=== PATIENT | female | born 1995 | race Caucasian/White ===

== ENCOUNTER 2021-08-25 20:03 | Inpatient (IN) | payer OTHER, SELFPAY ==
[2021-08-25 20:31] VITALS: BP 109/60; PULSE 75; RESP 16; TEMP 36.6; O2SAT 97; BMI 20.9
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
[2021-08-25 20:58] LABS: Lithium 0.85 mmol/L (0.60-1.20)
--- NOTE | 2021-08-25 21:53 | PC.ADMIT ---
Pt is a 25year old female admitted on CV from [facility] for concerns of SI with a plan to OD on Prescription medications. Pt is alert and oriented X4. VSS. Covid negative, Tox screen positive for THC. Pt reports she and her two babies were staying with pt's father until he kicked them out. Pt states she is homeless, feels hopeless and helpless. Speech is regular with normal rhythm tone and berenice. Pt denies SI at this time, denies HI/AH/VH. Pt states that she wants to get her medications fixed and as well get help with Psych providers. Pt presents as pleasant and cooperative.Pt denies having a PCP at this time. Admission orders obtained.
[2021-08-25] MEDS: traZODone HCL 50 MG TABLET PO (22:13)
[2021-08-25] MEDS: QUEtiapine Fumarate 50 MG TABLET 150 MG PO (22:13)
[2021-08-26 06:00] VITALS: BP 134/72; PULSE 91; RESP 18; TEMP 36.2
[2021-08-26] MEDS: Lithium Carbonate ER 450 MG TABLET.ER 900 MG PO (08:52)
[2021-08-26 09:29] LABS: Cholesterol 108 mg/dL; HDL Cholesterol 32 mg/dL; LDL Cholesterol Calculated 65 mg/dl; Triglycerides 59 mg/dL
[2021-08-26 09:31] LABS: Estimated Average Glucose 91 mg/dL; Hemoglobin A1c % 4.8 %
[2021-08-26 09:44] LABS: Free T4 (Free Thyroxine) 0.81 ng/dL (0.71-1.85); Thyroid Stimulating Hormone 1.93 uIU/mL (0.32-4.0)
[2021-08-26] MEDS: Nicotine 21 MG PATCH.TD24 TRANSDERMA (09:58)
[2021-08-26 10:00] LABS: Folate 14.5 ng/mL (> or = 4.0); Vitamin B12 514 pg/mL (200-900)
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
--- NOTE | 2021-08-26 15:31 | HO.PSYCHPN ---
Subjective Subjective Date of Service: 08/26/21 Reason For Visit: SI, OD on meds Subjective Notes: Conditional Voluntary Healthcare Proxy: No Guardianship: No Medical Problems Affecting Mental Status: No Interim History: Karyna asking for assist with housing. Reviewed medications-requested some STD testing-reports sx of vaginal candidiasis and possible UTI-will obtain urine culture. Reivew of precipitants to admission Medication Compliance: Yes Side effects from medications: No Attending Groups: Intermittent Review of Systems Acute medical concerns: No as noted above Medical Review of Systems: unchanged Review of Systems Psychiatric: Reports anxiety, Reports depression, Reports difficulty concentrating, Reports hopelessness, Reports irritability, Reports anhedonia and Reports mood swings Mental Status Exam Mental Status Exam Patient Appearance: Appropriate Patient Orientation: Person, Place, Time and Situation Level of Consciousness: Alert Patient Behavior: Appropriate, Talkative, Cooperative and Good Eye Contact Mood Description: Depressed, Fearful, Anxious and Apprehensive Affect Description: Flat Patient Cognition Impaired: No Ability to Follow Directions: Good Speech Pattern: Spontaneous Speech Memory Description: Intact Hallucinations: None Delusions: Not Present Perceptual Disturbances: Depersonalization and Derealization Thought Process: Goal Oriented Thought Content: positive for Goal Oriented Depressive Symptoms: Increased Anxiety, Diff. Making Decisions, Feelings of Worthlessness, Hopelessness, Feelings of Guilt and Low Self Esteem Abnormal Motor Activity Signs and Symptoms: Restlessness Judgement: Fair Diagnostics Vital Signs (24Hr): Vital Signs - 24 hr 08/25/21 20:31 08/26/21 06:00 Temperature 97.8 F 97.1 F Pulse Rate 75 91 Respiratory Rate 16 18 Blood Pressure 109/60 134/72 Pulse Oximetry 97 Oxygen Delivery Method Room Air Room Air BMI result Body Mass Index 20.9 Labs Labs: Laboratory Results - last 48 hr 08/25/21 08/26/21 08/26/21 20:37 08:24 08:24 Estimat Average Glucose 91 Hemoglobin A1c % 4.8 Magnesium 2.0 Triglycerides 59 Cholesterol 108 LDL Cholesterol, Calc 65 HDL Cholesterol 32 Vitamin B12 Folate TSH 1.93 Free T4 0.81 [place] 0.85 08/26/21 08:24 Estimat Average Glucose Hemoglobin A1c % Magnesium Triglycerides Cholesterol LDL Cholesterol, Calc HDL Cholesterol Vitamin B12 514 Folate 14.5 TSH Free T4 [place] Medications Medications Current Medications Acetaminophen (Acetaminophen 325 Mg Tablet) 650 mg PO Q6H PRN PRN Reason: Headache/Pain Mild Scale (1-3) Al Hydroxide/Mg Hydroxide (Magnesium Hydrox/Alum Hydrox 30 Ml Oral.Susp) 30 ml PO Q6H PRN PRN Reason: Heartburn/Nausea Hydroxyzine HCl (Hydroxyzine Hcl 50 Mg Tablet) 50 mg PO Q6H PRN PRN Reason: Anxiety [place] Carbonate ([place] Carbonate Er 450 Mg Tablet.Er) 900 mg PO DAILY [facility] Last Admin: 08/26/21 08:52 Dose: 900 mg Lorazepam (Lorazepam 0.5 Mg Tablet) 0.5 mg PO BID PRN PRN Reason: agitation Magnesium Hydroxide (Milk Of Magnesia 30 Ml Oral.Susp) 30 ml PO DAILY PRN PRN Reason: Constipation Nicotine (Nicotine 21 Mg Patch.Td24) 21 mg TRANSDERMA DAILY [facility] Last Admin: 08/26/21 09:58 Dose: 21 mg Quetiapine Fumarate (Quetiapine Fumarate 50 Mg Tablet) 150 mg PO BEDTIME [facility] Last Admin: 08/25/21 22:13 Dose: 150 mg Trazodone HCl (Trazodone Hcl 50 Mg Tablet) 50 mg PO BEDTIME [facility] Last Admin: 08/25/21 22:13 Dose: 50 mg Allergies Allergies Allergy/AdvReac Type Severity Reaction Status Date / Time No Known Allergies Allergy Verified 08/25/21 20:17 Assessment & Plan Assessment & Plan (1) MDD (major depressive disorder), recurrent episode, moderate: Status: Acute Code(s): F33.1 - Major depressive disorder, recurrent, moderate (2) THANG (generalized anxiety disorder): Status: Acute Code(s): F41.1 - Generalized anxiety disorder (3) Post traumatic stress disorder (PTSD): Status: Acute Code(s): F43.10 - Post-traumatic stress disorder, unspecified Plan 1. HIV, RPR 2. Urine Culture 3. EKG, hx cardiac murmur 4. Diflucan 150 mg x 1 dose for reports of sx of vaginal candidiasis 5.Discontinue Trazodone 6. Mirtazapine 7.5 mg hs I spent minutes with the patient and/or on the patient floor today, greater than?50% of which was spent counseling/coordinating care. Patient educated on: medication risk/benefits and therapeutic strategies Informed Consent: understands and further education needed Reason for contiued inpatient stay Substantial Risk for: harm to self, inability to function and rapid decompensation
[2021-08-26] MEDS: LORazepam 0.5 MG TABLET PO (17:18)
[2021-08-26 18:00] VITALS: BP 109/75; PULSE 78; RESP 16; TEMP 36.6; O2SAT 98
[2021-08-26] MEDS: Mirtazapine 7.5 MG TABLET PO ×2 (19:53→21:42)
[2021-08-26] MEDS: Fluconazole 150 MG TABLET PO (19:53)
[2021-08-26] MEDS: QUEtiapine Fumarate 50 MG TABLET 150 MG PO (19:53)
[2021-08-26] MEDS: Magnesium Hydrox/Alum Hydrox 30 ML ORAL.SUSP PO (20:49)
[2021-08-26 22:42] LABS: UPreg QC Valid YES; Urine Pregnancy NEGATIVE (NEGATIVE)
[2021-08-27 06:00] VITALS: BP 111/62; PULSE 83; RESP 16; TEMP 36.4; O2SAT 98
[2021-08-27] MEDS: Lithium Carbonate ER 450 MG TABLET.ER 900 MG PO (08:15)
[2021-08-27] MEDS: Nicotine 21 MG PATCH.TD24 TRANSDERMA (08:16)
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
[2021-08-27] MEDS: LORazepam 0.5 MG TABLET PO (11:58)
[2021-08-27] MEDS: busPIRone HCl 10 MG TABLET PO ×2 (15:37→21:37)
[2021-08-27 17:25] VITALS: BP 125/83; PULSE 98; TEMP 36.2
[2021-08-27] MEDS: QUEtiapine Fumarate 50 MG TABLET 150 MG PO (21:40)
[2021-08-27] MEDS: Mirtazapine 7.5 MG TABLET PO (21:40)
[2021-08-28 02:17] LABS: CT PCR NOT DETECTED (Not Detect.)
[2021-08-28 02:18] LABS: NG PCR NOT DETECTED (Not Detect.)
[2021-08-28 06:00] VITALS: BP 119/67; PULSE 87; RESP 16; TEMP 36.3; O2SAT 98
[2021-08-28] MEDS: Lithium Carbonate ER 450 MG TABLET.ER 900 MG PO (08:35)
[2021-08-28] MEDS: busPIRone HCl 10 MG TABLET PO ×3 (08:35→21:20)
[2021-08-28] MEDS: Nicotine 21 MG PATCH.TD24 TRANSDERMA (08:36)
[2021-08-28] MEDS: QUEtiapine Fumarate 100 MG TABLET PO ×2 (12:25→18:41)
[2021-08-28 16:05] VITALS: BP 120/57; PULSE 76; TEMP 37; O2SAT 99
--- NOTE | 2021-08-28 16:24 | P.PNPSI_ITS ---
Subjective Subjective Date of Service: 08/28/21 Reason For Visit: SI, OD on meds Interim History: Patient coped very well yesterday evening with upsetting phone call from her mother and though found it very triggering, kept her composure. Overall slept well. Today she is again very focused on using her markers and even asks for discharge so she can go to a another facility where markers are loud to be used more readily. Despite her initial strong feelings about being denied this extra privilege and struggling to accept the policy, patient was able to talk herself through and agree that the main issue is about her being able to stay in emotional and behavioral control, a skill that she needs to remain stable as an outpatient. Patient got to a place where she felt stable and said that she would continue to cope without being able to use her markers. Patient did get dysregulated having a verbal outburst when her meal tray was for gotten a 2nd time, however she was able to calm down and made use of p.r.n. Mental Status Exam Mental Status Exam Narrative: Pt is alert and oriented; behavior is cooperative, friendly, initially upset but able to become calm; dressed in casual, appropriate attire with combed hair and adequate hygiene; mood is described as upset and affect congruent (though eventually calmed); eye contact appropriate; Speech is normal rate, volume and prosody and not pressured; some psychomotor agitation present; thought process is organized and goal directed; Thought content is on being ignored by family on birthday; being denied coping tool; on tx, on battling hopeless feelings; otherwise pertinent to relevant topics and without any delusional content, paranoid ideations or grandiosity; intermittent passive wish; no HI. There is no evidence of perceptual disturbance and denies AVH; Patients insight and judgment are impaired but adequate. Diagnostics Vital Signs (24Hr): Vital Signs - 24 hr 08/27/21 17:25 08/28/21 06:00 08/28/21 16:05 Temperature 97.2 F 97.4 F 98.6 F Pulse Rate 98 87 76 Respiratory Rate 16 Blood Pressure 125/83 119/67 120/57 L Pulse Oximetry 98 99 BMI result Body Mass Index 20.9 Labs Labs: Laboratory Results - last 48 hr 08/26/21 08/27/21 21:40 21:14 Urine Test NEGATIVE Chlam trachomat DNA PCR NOT DETECTED N.gonorrhoeae DNA (PCR) NOT DETECTED Medications Medications Current Medications Acetaminophen (Acetaminophen 325 Mg Tablet) 650 mg PO Q6H PRN PRN Reason: Headache/Pain Mild Scale (1-3) Al Hydroxide/Mg Hydroxide (Magnesium Hydrox/Alum Hydrox 30 Ml Oral.Susp) 30 ml PO Q6H PRN PRN Reason: Heartburn/Nausea Last Admin: 08/26/21 20:49 Dose: 30 ml Buspirone HCl (Buspirone Hcl 10 Mg Tablet) 10 mg PO TID [facility] Last Admin: 08/28/21 14:19 Dose: 10 mg Hydroxyzine HCl (Hydroxyzine Hcl 50 Mg Tablet) 50 mg PO Q6H PRN PRN Reason: Anxiety [place] Carbonate ([place] Carbonate Er 450 Mg Tablet.Er) 900 mg PO DAILY [facility] Last Admin: 08/28/21 08:35 Dose: 900 mg Lorazepam (Lorazepam 0.5 Mg Tablet) 0.5 mg PO BID PRN PRN Reason: agitation Last Admin: 08/27/21 11:58 Dose: 0.5 mg Magnesium Hydroxide (Milk Of Magnesia 30 Ml Oral.Susp) 30 ml PO DAILY PRN PRN Reason: Constipation Mirtazapine (Mirtazapine 7.5 Mg Tablet) 7.5 mg PO BEDTIME MRX1 [facility] Last Admin: 08/28/21 08:08 Dose: Not Given Nicotine (Nicotine 21 Mg Patch.Td24) 21 mg TRANSDERMA DAILY [facility] Last Admin: 08/28/21 08:36 Dose: 21 mg Quetiapine Fumarate (Quetiapine Fumarate 50 Mg Tablet) 150 mg PO BEDTIME [facility] Last Admin: 08/27/21 21:40 Dose: 150 mg Quetiapine Fumarate (Quetiapine Fumarate 100 Mg Tablet) 100 mg PO TID PRN PRN Reason: anxiety Last Admin: 08/28/21 12:25 Dose: 100 mg Allergies Allergies Allergy/AdvReac Type Severity Reaction Status Date / Time No Known Allergies Allergy Verified 08/25/21 20:17 Assessment & Plan Assessment & Plan (1) MDD (major depressive disorder), recurrent episode, moderate: Status: Acute Code(s): F33.1 - Major depressive disorder, recurrent, moderate (2) THANG (generalized anxiety disorder): Status: Acute Code(s): F41.1 - Generalized anxiety disorder (3) Post traumatic stress disorder (PTSD): Status: Acute Code(s): F43.10 - Post-traumatic stress disorder, unspecified Plan 26-year-old patient with history of depression, anxiety, PTSD and a rule out for bipolar disorder 08/27 patient initially upset today as it was her birthday and ignored by family; able to process and come down; intermittent passive wish but no SI -started Seroquel 100 mg t.i.d. p.r.n. (patient said she is taking this dose at home when she needs to chill ) -started buspirone 10 mg t.i.d.; while it is generally preferable to maximize current medications (such as increasing mirtazapine rather than starting a new medication), patient very much wanted a trial of buspirone since she has tried her friends in the past and found it helpful; this medication is typically used in augmenting other medications and has low side effect profile and in this case administrative underwriter decided its benefit outweighed risks of polypharmacy -continue lithium 08/28 patient again struggling with feelings at not being able to use markers as a coping tool whenever needed; however she was able to talk herself through her feelings and calmed down. -pt has been sober for 3 years -father has bipolar disorder 1. HIV, RPR: PENDING 2. Urine Culture 3. EKG, hx cardiac murmur 4. Diflucan 150 mg x 1 dose for reports of sx of vaginal candidiasis 5.Discontinue Trazodone 6. Mirtazapine 7.5 mg hs 7. BuSpar 10 mg t.i.d. 8. Seroquel 100 mg t.i.d. p.r.n. for anxiety/agitation Negative gonorrhea/chlamydia I spent minutes with the patient and/or on the patient floor today, greater than?50% of which was spent counseling/coordinating care. Patient educated on: diagnosis, medication risk/benefits and therapeutic strategies Informed Consent: understands Reason for contiued inpatient stay Substantial Risk for: rapid decompensation
[2021-08-28] MEDS: QUEtiapine Fumarate 50 MG TABLET 150 MG PO (21:20)
[2021-08-28] MEDS: Mirtazapine 7.5 MG TABLET PO (21:36)
[2021-08-29 06:00] VITALS: BP 123/62; PULSE 79; RESP 16; TEMP 36.7; O2SAT 98
[2021-08-29 07:56] LABS: HIV AB/AG Nonreactive (Nonreactive); HIV Num 1 0.12 S/CO (0.00-0.99)
[2021-08-29] MEDS: QUEtiapine Fumarate 100 MG TABLET PO ×3 (08:28→20:35)
[2021-08-29] MEDS: busPIRone HCl 10 MG TABLET PO ×3 (08:28→21:41)
[2021-08-29] MEDS: Lithium Carbonate ER 450 MG TABLET.ER 900 MG PO (08:28)
[2021-08-29] MEDS: Nicotine 21 MG PATCH.TD24 TRANSDERMA (08:28)
[2021-08-29 08:48] LABS: Syphilis Screen Nonreactive (Nonreactive)
--- NOTE | 2021-08-29 15:53 | HO.PSYCHPN ---
Subjective Subjective Date of Service: 08/29/21 Reason For Visit: SI, OD on meds Subjective Notes: Conditional Voluntary Healthcare Proxy: No Guardianship: No Medical Problems Affecting Mental Status: No Interim History: Labile, angry, threatening. Expressed anger that DCF is wanting mother to take temporary custody of the children, feels she is being set up. States she has needed an immigration attorney in the past to manage DCF and will probably need to re-engage one to help with this situation. Pt is homeless, she has burned bridges with the family. She reports she will kill herself if the children are taken. Describes different personalities when stressed/angry. States she does not feel she is taken seriously until I flip out . Pt looking at housing options with the team. [place] level is therapeutic at 0.85. Medication Compliance: Yes Side effects from medications: No Attending Groups: Intermittent Review of Systems Acute medical concerns: No Medical Review of Systems: unchanged Review of Systems Reports behavioral changes Psychiatric: Reports anxiety, Reports behavioral changes, Reports difficulty concentrating, Reports irritability, Reports anhedonia, Reports mood swings, Reports paranoia and Reports suicidal ideation (threats if DCF takes her children) Mental Status Exam Mental Status Exam Patient Appearance: Appropriate Patient Orientation: Person, Place, Time and Situation Level of Consciousness: Alert Patient Behavior: Guarded, Talkative, Suspicious, Restless, Anxious, Distractible, Good Eye Contact and Impulsive Mood Description: Labile and Angry Affect Description: Labile and Angry Patient Cognition Impaired: No Ability to Follow Directions: Good Speech Pattern: Spontaneous Speech Memory Description: Episodic Impaired Hallucinations: None Delusions: Being Controlled and Paranoid Ideation Perceptual Disturbances: Depersonalization and Derealization Thought Process: Distracted, Rumination and Evasive Thought Content: positive for [place], positive for Circumstantial, positive for Perseveration and positive for Suicidal Ideation (if children are taken) Depressive Symptoms: Increased Irritability Abnormal Motor Activity Signs and Symptoms: Agitation and Restlessness Judgement: Fair Diagnostics Vital Signs (24Hr): Vital Signs - 24 hr 08/28/21 16:05 08/29/21 06:00 Temperature 98.6 F 98.1 F Pulse Rate 76 79 Respiratory Rate 16 Blood Pressure 120/57 L 123/62 Pulse Oximetry 99 98 BMI result Body Mass Index 20.9 Labs Labs: Laboratory Results - last 48 hr 08/27/21 08/27/21 08/27/21 08:40 08:40 21:14 T.pallidum Ab (EIA) Nonreactive Chlam trachomat DNA PCR NOT DETECTED HIV 1&2 Ab/P24 Ag 4thGn Nonreactive N.gonorrhoeae DNA (PCR) NOT DETECTED Medications Medications Current Medications Acetaminophen (Acetaminophen 325 Mg Tablet) 650 mg PO Q6H PRN PRN Reason: Headache/Pain Mild Scale (1-3) Al Hydroxide/Mg Hydroxide (Magnesium Hydrox/Alum Hydrox 30 Ml Oral.Susp) 30 ml PO Q6H PRN PRN Reason: Heartburn/Nausea Last Admin: 08/26/21 20:49 Dose: 30 ml Bupropion HCl (Bupropion Hcl 75 Mg Tablet) 75 mg PO DAILY [facility] Buspirone HCl (Buspirone Hcl 10 Mg Tablet) 10 mg PO TID [facility] Last Admin: 08/29/21 14:44 Dose: 10 mg Hydroxyzine HCl (Hydroxyzine Hcl 50 Mg Tablet) 50 mg PO Q6H PRN PRN Reason: Anxiety Lamotrigine (Lamotrigine 25 Mg Tablet) 25 mg PO BEDTIME [facility] [place] Carbonate ([place] Carbonate Er 450 Mg Tablet.Er) 900 mg PO DAILY [facility] Last Admin: 08/29/21 08:28 Dose: 900 mg Lorazepam (Lorazepam 0.5 Mg Tablet) 0.5 mg PO BID PRN PRN Reason: agitation Last Admin: 08/27/21 11:58 Dose: 0.5 mg Magnesium Hydroxide (Milk Of Magnesia 30 Ml Oral.Susp) 30 ml PO DAILY PRN PRN Reason: Constipation Mirtazapine (Mirtazapine 7.5 Mg Tablet) 7.5 mg PO BEDTIME MRX1 [facility] Last Admin: 08/29/21 00:15 Dose: Not Given Nicotine (Nicotine 21 Mg Patch.Td24) 21 mg TRANSDERMA DAILY [facility] Last Admin: 08/29/21 08:28 Dose: 21 mg Quetiapine Fumarate (Quetiapine Fumarate 50 Mg Tablet) 150 mg PO BEDTIME [facility] Last Admin: 08/28/21 21:20 Dose: 150 mg Quetiapine Fumarate (Quetiapine Fumarate 100 Mg Tablet) 100 mg PO TID PRN PRN Reason: anxiety Last Admin: 08/29/21 13:47 Dose: 100 mg Allergies Allergies Allergy/AdvReac Type Severity Reaction Status Date / Time No Known Allergies Allergy Verified 08/25/21 20:17 Assessment & Plan Assessment & Plan (1) MDD (major depressive disorder), recurrent episode, moderate: Status: Acute Code(s): F33.1 - Major depressive disorder, recurrent, moderate (2) THANG (generalized anxiety disorder): Status: Acute Code(s): F41.1 - Generalized anxiety disorder (3) Post traumatic stress disorder (PTSD): Status: Acute Code(s): F43.10 - Post-traumatic stress disorder, unspecified Plan 26-year-old patient with history of depression, anxiety, PTSD and a rule out for bipolar disorder 08/27 patient initially upset today as it was her birthday and ignored by family; able to process and come down; intermittent passive wish but no SI -started Seroquel 100 mg t.i.d. p.r.n. (patient said she is taking this dose at home when she needs to chill ) -started buspirone 10 mg t.i.d.; while it is generally preferable to maximize current medications (such as increasing mirtazapine rather than starting a new medication), patient very much wanted a trial of buspirone since she has tried her friends in the past and found it helpful; this medication is typically used in augmenting other medications and has low side effect profile and in this case loan underwriter decided its benefit outweighed risks of polypharmacy -continue lithium 08/28 patient again struggling with feelings at not being able to use markers as a coping tool whenever needed; however she was able to talk herself through her feelings and calmed down. -pt has been sober for 3 years -father has bipolar disorder 1. HIV, RPR: PENDING 2. Urine Culture 3. EKG, hx cardiac murmur 4. Diflucan 150 mg x 1 dose for reports of sx of vaginal candidiasis 5.Discontinue Trazodone 6. Mirtazapine 7.5 mg hs 7. BuSpar 10 mg t.i.d. 8. Seroquel 100 mg t.i.d. p.r.n. for anxiety/agitation Negative gonorrhea/chlamydia 08/29/21 Wellbutrin 75 mg a.m. Lamictal 25 mg hs I spent minutes with the patient and/or on the patient floor today, greater than?50% of which was spent counseling/coordinating care. Patient educated on: medication risk/benefits and therapeutic strategies Informed Consent: understands and further education needed Reason for contiued inpatient stay Substantial Risk for: harm to self, harm to others, inability to function and rapid decompensation
[2021-08-29] MEDS: LORazepam 0.5 MG TABLET PO (16:36)
[2021-08-29 18:00] VITALS: BP 112/57; PULSE 90; TEMP 36.4; O2SAT 99
[2021-08-29] MEDS: lamoTRIgine 25 MG TABLET PO (21:41)
[2021-08-29] MEDS: Mirtazapine 7.5 MG TABLET PO ×2 (21:41→21:45)
[2021-08-29] MEDS: QUEtiapine Fumarate 50 MG TABLET 150 MG PO (21:41)
[2021-08-30 06:00] VITALS: BP 105/54; PULSE 79; RESP 16; TEMP 37.1; O2SAT 98
[2021-08-30] MEDS: Lithium Carbonate ER 450 MG TABLET.ER 900 MG PO (08:30)
[2021-08-30] MEDS: buPROPion HCL 75 MG TABLET PO (08:30)
[2021-08-30] MEDS: busPIRone HCl 10 MG TABLET PO ×3 (08:30→21:19)
[2021-08-30] MEDS: Nicotine 21 MG PATCH.TD24 TRANSDERMA (08:32)
[2021-08-30] MEDS: guaiFENesin DM 600/30 1 TAB TAB.ER.12H PO (09:50)
[2021-08-30] MEDS: Throat Lozenge, Medicated LOZENGE 1 LOZENGE MUCOUS MEM (10:20)
[2021-08-30 10:41] LABS: COVID-19 Test Negative (Negative); IDNOW Serial# 08D9AD1C
[2021-08-30] MEDS: QUEtiapine Fumarate 100 MG TABLET PO (11:26)
[2021-08-30] MEDS: LORazepam 0.5 MG TABLET PO (11:26)
--- NOTE | 2021-08-30 12:30 | P.PNPSI_ITS ---
Subjective Subjective Date of Service: 08/30/21 Reason For Visit: SI, OD on meds Subjective Notes: Conditional Voluntary Healthcare Proxy: No Guardianship: No Medical Problems Affecting Mental Status: No Interim History: Angry, labile, irritable. DCF asked Deni AGUSTIN to relay a message to pt that they are not trying to take her children away, however there are issues to be clarified and worked through and temporary custody is one of them. Pt unable to hear the entire explanation of DCF position, stating, that she assumes from this information that she needs an contract attorney. She aburptly left our meeting and was agitated for the remainder of the day. She does have an interview with [facility] on 08/31 12pm for placement eval (possibly with [facility] or a facility in [facility]). Prn Haldol/Ativan added to pt's regime as she has threatened to lose control Medication Compliance: Yes Side effects from medications: No Attending Groups: Intermittent Review of Systems Acute medical concerns: No Medical Review of Systems: unchanged Review of Systems Reports behavioral changes Psychiatric: Reports behavioral changes, Reports difficulty concentrating, Reports irritability, Reports mood swings, Reports paranoia and Reports suicidal ideation Mental Status Exam Mental Status Exam Patient Appearance: Appropriate Patient Orientation: Person, Place, Time and Situation Level of Consciousness: Alert Patient Behavior: Guarded, Talkative, Suspicious, Restless, Anxious, Distractible, Good Eye Contact and Impulsive Mood Description: Labile and Angry Affect Description: Labile and Angry Patient Cognition Impaired: No Ability to Follow Directions: Good Speech Pattern: Spontaneous Speech Memory Description: Episodic Impaired Hallucinations: None Delusions: Being Controlled and Paranoid Ideation Perceptual Disturbances: Depersonalization and Derealization Thought Process: Distracted, Rumination and Evasive Thought Content: positive for [place], positive for [place], positive for Perseveration and positive for Suicidal Ideation (if children are taken) Depressive Symptoms: Increased Irritability Abnormal Motor Activity Signs and Symptoms: Agitation and Restlessness Judgement: Fair Diagnostics Vital Signs (24Hr): Vital Signs - 24 hr 08/29/21 18:00 08/30/21 06:00 Temperature 97.6 F 98.7 F Pulse Rate 90 79 Respiratory Rate 16 Blood Pressure 112/57 L 105/54 L Pulse Oximetry 99 98 Oxygen Delivery Method Room Air BMI result Body Mass Index 20.9 Labs Labs: Laboratory Results - last 48 hr 08/27/21 08/27/21 08/30/21 08:40 08:40 09:57 T.pallidum Ab (EIA) Nonreactive COVID-19 ([facility]) Negative COVID-19 Clin Com See Note HIV 1&2 Ab/P24 Ag 4thGn Nonreactive Medications Medications Current Medications Acetaminophen (Acetaminophen 325 Mg Tablet) 650 mg PO Q6H PRN PRN Reason: Headache/Pain Mild Scale (1-3) Al Hydroxide/Mg Hydroxide (Magnesium Hydrox/Alum Hydrox 30 Ml Oral.Susp) 30 ml PO Q6H PRN PRN Reason: Heartburn/Nausea Last Admin: 08/26/21 20:49 Dose: 30 ml Benzocaine (Throat Lozenge, Medicated Lozenge) 1 lozenge MUCOUS MEM Q2H PRN PRN Reason: Sore Throat, cough Last Admin: 08/30/21 10:20 Dose: 1 lozenge Bupropion HCl (Bupropion Hcl 75 Mg Tablet) 75 mg PO DAILY [facility] Last Admin: 08/30/21 08:30 Dose: 75 mg Buspirone HCl (Buspirone Hcl 10 Mg Tablet) 10 mg PO TID [facility] Last Admin: 08/30/21 08:30 Dose: 10 mg Guaifenesin/Dextromethorphan (Guaifenesin Dm 600/30 1 Tab Tab.Er.12h) 1 tab PO BID PRN PRN Reason: Cough Last Admin: 08/30/21 09:50 Dose: 1 tab Hydroxyzine HCl (Hydroxyzine Hcl 50 Mg Tablet) 50 mg PO Q6H PRN PRN Reason: Anxiety Lamotrigine (Lamotrigine 25 Mg Tablet) 25 mg PO BEDTIME [facility] Last Admin: 08/29/21 21:41 Dose: 25 mg [place] Carbonate ([place] Carbonate Er 450 Mg Tablet.Er) 900 mg PO DAILY [facility] Last Admin: 08/30/21 08:30 Dose: 900 mg Lorazepam (Lorazepam 0.5 Mg Tablet) 0.5 mg PO BID PRN PRN Reason: agitation Last Admin: 08/30/21 11:26 Dose: 0.5 mg Magnesium Hydroxide (Milk Of Magnesia 30 Ml Oral.Susp) 30 ml PO DAILY PRN PRN Reason: Constipation Mirtazapine (Mirtazapine 7.5 Mg Tablet) 7.5 mg PO BEDTIME MRX1 [facility] Last Admin: 08/29/21 21:45 Dose: 7.5 mg Nicotine (Nicotine 21 Mg Patch.Td24) 21 mg TRANSDERMA DAILY [facility] Last Admin: 08/30/21 08:32 Dose: 21 mg Quetiapine Fumarate (Quetiapine Fumarate 50 Mg Tablet) 150 mg PO BEDTIME [facility] Last Admin: 08/29/21 21:41 Dose: 150 mg Quetiapine Fumarate (Quetiapine Fumarate 100 Mg Tablet) 100 mg PO TID PRN PRN Reason: anxiety Last Admin: 08/30/21 11:26 Dose: 100 mg Allergies Allergies Allergy/AdvReac Type Severity Reaction Status Date / Time No Known Allergies Allergy Verified 08/25/21 20:17 Assessment & Plan Assessment & Plan (1) MDD (major depressive disorder), recurrent episode, moderate: Status: Acute Code(s): F33.1 - Major depressive disorder, recurrent, moderate (2) THANG (generalized anxiety disorder): Status: Acute Code(s): F41.1 - Generalized anxiety disorder (3) Post traumatic stress disorder (PTSD): Status: Acute Code(s): F43.10 - Post-traumatic stress disorder, unspecified Plan 26-year-old patient with history of depression, anxiety, PTSD and a rule out for bipolar disorder 08/27 patient initially upset today as it was her birthday and ignored by family; able to process and come down; intermittent passive wish but no SI -started Seroquel 100 mg t.i.d. p.r.n. (patient said she is taking this dose at home when she needs to chill ) -started buspirone 10 mg t.i.d.; while it is generally preferable to maximize current medications (such as increasing mirtazapine rather than starting a new medication), patient very much wanted a trial of buspirone since she has tried her friends in the past and found it helpful; this medication is typically used in augmenting other medications and has low side effect profile and in this case freelance copywriter decided its benefit outweighed risks of polypharmacy -continue lithium 08/28 patient again struggling with feelings at not being able to use markers as a coping tool whenever needed; however she was able to talk herself through her feelings and calmed down. -pt has been sober for 3 years -father has bipolar disorder 1. HIV, RPR: PENDING 2. Urine Culture 3. EKG, hx cardiac murmur 4. Diflucan 150 mg x 1 dose for reports of sx of vaginal candidiasis 5.Discontinue Trazodone 6. Mirtazapine 7.5 mg hs 7. BuSpar 10 mg t.i.d. 8. Seroquel 100 mg t.i.d. p.r.n. for anxiety/agitation Negative gonorrhea/chlamydia 08/30/21 Haldol/Ativan prn for severe agitation. I spent minutes with the patient and/or on the patient floor today, greater than?50% of which was spent counseling/coordinating care. Patient educated on: therapeutic strategies Informed Consent: further education needed Reason for contiued inpatient stay Substantial Risk for: harm to self, inability to function and rapid decompensation
[2021-08-30] MEDS: hydrOXYzine HCL 50 MG TABLET PO (13:31)
[2021-08-30] MEDS: LORazepam 1 MG TABLET PO (14:14)
[2021-08-30] MEDS: HaloperidoL 5 MG TABLET PO (14:14)
[2021-08-30 18:00] VITALS: BP 106/52; PULSE 85; RESP 18; TEMP 36.8; O2SAT 97
[2021-08-30] MEDS: QUEtiapine Fumarate 50 MG TABLET 150 MG PO (21:18)
[2021-08-30] MEDS: Mirtazapine 7.5 MG TABLET PO (21:18)
[2021-08-31] MEDS: Nicotine 21 MG PATCH.TD24 TRANSDERMA (08:24)
[2021-08-31] MEDS: buPROPion HCL 75 MG TABLET PO (08:24)
[2021-08-31] MEDS: busPIRone HCl 10 MG TABLET PO ×3 (08:24→20:13)
[2021-08-31] MEDS: Lithium Carbonate ER 450 MG TABLET.ER 900 MG PO (08:24)
[2021-08-31 08:27] VITALS: BP 97/61; PULSE 83; RESP 18; TEMP 36.2; O2SAT 99
[2021-08-31] MEDS: QUEtiapine Fumarate 100 MG TABLET PO ×2 (11:07→21:11)
--- NOTE | 2021-08-31 13:16 | HO.PSYCHPN ---
Subjective Subjective Date of Service: 08/31/21 Reason For Visit: SI, OD on meds Subjective Notes: Conditional Voluntary Healthcare Proxy: No Guardianship: No Medical Problems Affecting Mental Status: No Interim History: Karyna remains with irritability and lability, however, more organized around self-advocacy for housing for herself and her children. Interviewing today with Ziggy Salazar for placement. Review of medications- finding Seroquel and Haldol helpful in grounding her thoughts and clarity. Discussed timing of Seroquel. Medication Compliance: Yes Side effects from medications: No Attending Groups: Intermittent Review of Systems Acute medical concerns: No Medical Review of Systems: unchanged Review of Systems Reports behavioral changes Psychiatric: Reports anxiety, Reports behavioral changes, Reports irritability, Reports anhedonia, Reports mood swings, Reports paranoia, Reports homicidal ideation (denies) and Reports suicidal ideation (denies) Mental Status Exam Mental Status Exam Patient Appearance: Appropriate Patient Orientation: Person, Place, Time and Situation Level of Consciousness: Alert Patient Behavior: Talkative and Good Eye Contact Mood Description: Labile Affect Description: Labile Patient Cognition Impaired: No Ability to Follow Directions: Good Speech Pattern: Spontaneous Speech Memory Description: Intact Hallucinations: None Delusions: Not Present Perceptual Disturbances: Depersonalization and Derealization Thought Process: Distracted Thought Content: positive for Circumstantial, positive for Suicidal Ideation (denies) and positive for Homicidal Ideation (denies) Judgement: Good Diagnostics Vital Signs (24Hr): Vital Signs - 24 hr 08/30/21 18:00 08/31/21 08:27 Temperature 98.3 F 97.1 F Pulse Rate 85 83 Respiratory Rate 18 18 Blood Pressure 106/52 L 97/61 Pulse Oximetry 97 99 Oxygen Delivery Method Room Air Room Air BMI result Body Mass Index 20.9 Labs Labs: Laboratory Results - last 48 hr 08/30/21 09:57 COVID-19 (RAFY) Negative COVID-19 Clin Com See Note Medications Medications Current Medications Acetaminophen (Acetaminophen 325 Mg Tablet) 650 mg PO Q6H PRN PRN Reason: Headache/Pain Mild Scale (1-3) Al Hydroxide/Mg Hydroxide (Magnesium Hydrox/Alum Hydrox 30 Ml Oral.Susp) 30 ml PO Q6H PRN PRN Reason: Heartburn/Nausea Last Admin: 08/26/21 20:49 Dose: 30 ml Benzocaine (Throat Lozenge, Medicated Lozenge) 1 lozenge MUCOUS MEM Q2H PRN PRN Reason: Sore Throat, cough Last Admin: 08/30/21 10:20 Dose: 1 lozenge Bupropion HCl (Bupropion Hcl 75 Mg Tablet) 75 mg PO DAILY [facility] Last Admin: 08/31/21 08:24 Dose: 75 mg Buspirone HCl (Buspirone Hcl 10 Mg Tablet) 10 mg PO TID MARY Last Admin: 08/31/21 08:24 Dose: 10 mg Guaifenesin/Dextromethorphan (Guaifenesin Dm 600/30 1 Tab Tab.Er.12h) 1 tab PO BID PRN PRN Reason: Cough Last Admin: 08/30/21 09:50 Dose: 1 tab Haloperidol (Haloperidol 5 Mg Tablet) 5 mg PO TID PRN PRN Reason: agitation, aggression Last Admin: 08/30/21 14:14 Dose: 5 mg Hydroxyzine HCl (Hydroxyzine Hcl 50 Mg Tablet) 50 mg PO Q6H PRN PRN Reason: Anxiety Last Admin: 08/30/21 13:31 Dose: 50 mg Lamotrigine (Lamotrigine 25 Mg Tablet) 25 mg PO BEDTIME [facility] Last Admin: 08/31/21 08:26 Dose: Not Given Wellston Carbonate (Wellston Carbonate Er 450 Mg Tablet.Er) 900 mg PO DAILY [facility] Last Admin: 08/31/21 08:24 Dose: 900 mg Lorazepam (Lorazepam 1 Mg Tablet) 1 mg PO TID PRN PRN Reason: agitation,aggression Last Admin: 08/30/21 14:14 Dose: 1 mg Magnesium Hydroxide (Milk Of Magnesia 30 Ml Oral.Susp) 30 ml PO DAILY PRN PRN Reason: Constipation Mirtazapine (Mirtazapine 7.5 Mg Tablet) 7.5 mg PO BEDTIME MRX1 [facility] Last Admin: 08/31/21 08:26 Dose: Not Given Nicotine (Nicotine 21 Mg Patch.Td24) 21 mg TRANSDERMA DAILY [facility] Last Admin: 08/31/21 08:24 Dose: 21 mg Quetiapine Fumarate (Quetiapine Fumarate 50 Mg Tablet) 150 mg PO BEDTIME [facility] Last Admin: 08/30/21 21:18 Dose: 150 mg Quetiapine Fumarate (Quetiapine Fumarate 100 Mg Tablet) 100 mg PO TID PRN PRN Reason: anxiety Last Admin: 08/31/21 11:07 Dose: 100 mg Allergies Allergies Allergy/AdvReac Type Severity Reaction Status Date / Time No Known Allergies Allergy Verified 08/25/21 20:17 Assessment & Plan Assessment & Plan (1) MDD (major depressive disorder), recurrent episode, moderate: Status: Acute Code(s): F33.1 - Major depressive disorder, recurrent, moderate (2) THANG (generalized anxiety disorder): Status: Acute Code(s): F41.1 - Generalized anxiety disorder (3) Post traumatic stress disorder (PTSD): Status: Acute Code(s): F43.10 - Post-traumatic stress disorder, unspecified Plan 26-year-old patient with history of depression, anxiety, PTSD and a rule out for bipolar disorder 08/27 patient initially upset today as it was her birthday and ignored by family; able to process and come down; intermittent passive wish but no SI -started Seroquel 100 mg t.i.d. p.r.n. (patient said she is taking this dose at home when she needs to chill ) -started buspirone 10 mg t.i.d.; while it is generally preferable to maximize current medications (such as increasing mirtazapine rather than starting a new medication), patient very much wanted a trial of buspirone since she has tried her friends in the past and found it helpful; this medication is typically used in augmenting other medications and has low side effect profile and in this case underwriter solicitation director decided its benefit outweighed risks of polypharmacy -continue lithium 08/28 patient again struggling with feelings at not being able to use markers as a coping tool whenever needed; however she was able to talk herself through her feelings and calmed down. -pt has been sober for 3 years -father has bipolar disorder 1. HIV, RPR: PENDING 2. Urine Culture 3. EKG, hx cardiac murmur 4. Diflucan 150 mg x 1 dose for reports of sx of vaginal candidiasis 5.Discontinue Trazodone 6. Mirtazapine 7.5 mg hs 7. BuSpar 10 mg t.i.d. 8. Seroquel 100 mg t.i.d. p.r.n. for anxiety/agitation Negative gonorrhea/chlamydia 08/30/21 Haldol/Ativan prn for severe agitation. 08/31/21 Change Seroquel timing to a.m. afternoon Pt believes Remeron is enough at this time. I spent minutes with the patient and/or on the patient floor today, greater than?50% of which was spent counseling/coordinating care. Patient educated on: medication risk/benefits and therapeutic strategies Informed Consent: understands Reason for contiued inpatient stay Substantial Risk for: rapid decompensation
[2021-08-31] MEDS: QUEtiapine Fumarate 50 MG TABLET 150 MG PO (14:37)
[2021-08-31 17:23] VITALS: BP 119/76; PULSE 100; RESP 18; TEMP 36.7
[2021-08-31] MEDS: Mirtazapine 7.5 MG TABLET PO (20:13)
[2021-08-31] MEDS: lamoTRIgine 25 MG TABLET PO (20:13)
[2021-08-31 20:39] VITALS: BP 113/58; PULSE 79; TEMP 36.3
[2021-08-31] MEDS: LORazepam 1 MG TABLET PO (21:11)
[2021-09-01 07:00] VITALS: BMI 21.7
[2021-09-01] MEDS: buPROPion HCL 75 MG TABLET PO (08:56)
[2021-09-01] MEDS: Lithium Carbonate ER 450 MG TABLET.ER 900 MG PO (08:56)
[2021-09-01] MEDS: busPIRone HCl 10 MG TABLET PO ×3 (08:56→21:26)
[2021-09-01] MEDS: QUEtiapine Fumarate 50 MG TABLET 150 MG PO ×3 (08:56→21:25)
[2021-09-01] MEDS: Nicotine 21 MG PATCH.TD24 TRANSDERMA (08:57)
[2021-09-01 11:11] VITALS: BP 107/74; PULSE 88; RESP 20; TEMP 36.7; O2SAT 97
[2021-09-01] MEDS: Milk of Magnesia 30 ML ORAL.SUSP PO (14:49)
--- NOTE | 2021-09-01 17:22 | HO.PSYCHPN ---
Subjective Subjective Date of Service: 09/01/21 Reason For Visit: SI, OD on meds Subjective Notes: Conditional Voluntary Healthcare Proxy: No Guardianship: No Medical Problems Affecting Mental Status: No Interim History: Karyna and family accepted at [facility]. Discharge 09/02/21. Deni Holbrook [facility] has arranged to have children transported with pt via [facility]. Facility asks for 1 month plus 1 refill of medications. Mildly irritable, easily frustrated, anxious, asking for Seroquel to be returned to HS Medication Compliance: Yes Side effects from medications: No Attending Groups: Yes Review of Systems Acute medical concerns: No Medical Review of Systems: unchanged Review of Systems Psychiatric: Reports abnormal sleep pattern (asks for Seroquel to return), Reports anxiety, Reports irritability, Reports homicidal ideation (denies) and Reports suicidal ideation (denies) Mental Status Exam Mental Status Exam Patient Appearance: Appropriate Patient Orientation: Person, Place, Time and Situation Level of Consciousness: Alert Patient Behavior: Appropriate, Talkative, Cooperative and Good Eye Contact Mood Description: Labile Affect Description: Labile Patient Cognition Impaired: No Ability to Follow Directions: Good Speech Pattern: Spontaneous Speech Memory Description: Intact Hallucinations: None Delusions: Not Present Thought Process: Goal Oriented Thought Content: positive for Goal Oriented Depressive Symptoms: Increased Anxiety and Thoughts of /Suicide (denies) Judgement: Good Diagnostics Vital Signs (24Hr): Vital Signs - 24 hr 08/31/21 17:23 08/31/21 20:39 09/01/21 11:11 Temperature 98.1 F 97.3 F 98.1 F Pulse Rate 100 79 88 Respiratory Rate 18 20 Blood Pressure 119/76 113/58 L 107/74 Pulse Oximetry 97 Oxygen Delivery Method Room Air Room Air BMI result Body Mass Index 21.7 Medications Medications Current Medications Acetaminophen (Acetaminophen 325 Mg Tablet) 650 mg PO Q6H PRN PRN Reason: Headache/Pain Mild Scale (1-3) Al Hydroxide/Mg Hydroxide (Magnesium Hydrox/Alum Hydrox 30 Ml Oral.Susp) 30 ml PO Q6H PRN PRN Reason: Heartburn/Nausea Last Admin: 08/26/21 20:49 Dose: 30 ml Benzocaine (Throat Lozenge, Medicated Lozenge) 1 lozenge MUCOUS MEM Q2H PRN PRN Reason: Sore Throat, cough Last Admin: 08/30/21 10:20 Dose: 1 lozenge Bupropion HCl (Bupropion Hcl 75 Mg Tablet) 75 mg PO DAILY [facility] Last Admin: 09/01/21 08:56 Dose: 75 mg Buspirone HCl (Buspirone Hcl 10 Mg Tablet) 10 mg PO TID MARY Last Admin: 09/01/21 14:04 Dose: 10 mg Guaifenesin/Dextromethorphan (Guaifenesin Dm 600/30 1 Tab Tab.Er.12h) 1 tab PO BID PRN PRN Reason: Cough Last Admin: 08/30/21 09:50 Dose: 1 tab Haloperidol (Haloperidol 5 Mg Tablet) 5 mg PO TID PRN PRN Reason: agitation, aggression Last Admin: 08/30/21 14:14 Dose: 5 mg Hydroxyzine HCl (Hydroxyzine Hcl 50 Mg Tablet) 50 mg PO Q6H PRN PRN Reason: Anxiety Last Admin: 08/30/21 13:31 Dose: 50 mg Lamotrigine (Lamotrigine 25 Mg Tablet) 25 mg PO BEDTIME [facility] Last Admin: 08/31/21 20:13 Dose: 25 mg Saunemin Carbonate (Saunemin Carbonate Er 450 Mg Tablet.Er) 900 mg PO DAILY [facility] Last Admin: 09/01/21 08:56 Dose: 900 mg Lorazepam (Lorazepam 1 Mg Tablet) 1 mg PO TID PRN PRN Reason: agitation,aggression Last Admin: 08/31/21 21:11 Dose: 1 mg Magnesium Hydroxide (Milk Of Magnesia 30 Ml Oral.Susp) 30 ml PO DAILY PRN PRN Reason: Constipation Last Admin: 09/01/21 14:49 Dose: 30 ml Mirtazapine (Mirtazapine 7.5 Mg Tablet) 7.5 mg PO BEDTIME MRX1 [facility] Last Admin: 08/31/21 21:44 Dose: Not Given Nicotine (Nicotine 21 Mg Patch.Td24) 21 mg TRANSDERMA DAILY [facility] Last Admin: 09/01/21 08:57 Dose: 21 mg Quetiapine Fumarate (Quetiapine Fumarate 100 Mg Tablet) 100 mg PO TID PRN PRN Reason: anxiety Last Admin: 08/31/21 21:11 Dose: 100 mg Quetiapine Fumarate (Quetiapine Fumarate 50 Mg Tablet) 150 mg PO 0900,1500 [facility] Last Admin: 09/01/21 14:04 Dose: 150 mg Allergies Allergies Allergy/AdvReac Type Severity Reaction Status Date / Time No Known Allergies Allergy Verified 08/25/21 20:17 Assessment & Plan Assessment & Plan (1) MDD (major depressive disorder), recurrent episode, moderate: Status: Acute Code(s): F33.1 - Major depressive disorder, recurrent, moderate (2) THANG (generalized anxiety disorder): Status: Acute Code(s): F41.1 - Generalized anxiety disorder (3) Post traumatic stress disorder (PTSD): Status: Acute Code(s): F43.10 - Post-traumatic stress disorder, unspecified Plan 26-year-old patient with history of depression, anxiety, PTSD and a rule out for bipolar disorder 08/27 patient initially upset today as it was her birthday and ignored by family; able to process and come down; intermittent passive wish but no SI -started Seroquel 100 mg t.i.d. p.r.n. (patient said she is taking this dose at home when she needs to chill ) -started buspirone 10 mg t.i.d.; while it is generally preferable to maximize current medications (such as increasing mirtazapine rather than starting a new medication), patient very much wanted a trial of buspirone since she has tried her friends in the past and found it helpful; this medication is typically used in augmenting other medications and has low side effect profile and in this case gag writer decided its benefit outweighed risks of polypharmacy -continue lithium 08/28 patient again struggling with feelings at not being able to use markers as a coping tool whenever needed; however she was able to talk herself through her feelings and calmed down. -pt has been sober for 3 years -father has bipolar disorder 1. HIV, RPR: PENDING 2. Urine Culture 3. EKG, hx cardiac murmur 4. Diflucan 150 mg x 1 dose for reports of sx of vaginal candidiasis 5.Discontinue Trazodone 6. Mirtazapine 7.5 mg hs 7. BuSpar 10 mg t.i.d. 8. Seroquel 100 mg t.i.d. p.r.n. for anxiety/agitation Negative gonorrhea/chlamydia 08/30/21 Haldol/Ativan prn for severe agitation. 08/31/21 Change Seroquel timing to a.m. afternoon Pt believes Remeron is enough at this time. 09/01/21 Discharge 09/02. Labs in the a.m. Add Seroquel 150 mg hs to bid dosing I spent minutes with the patient and/or on the patient floor today, greater than?50% of which was spent counseling/coordinating care. Patient educated on: medication risk/benefits and therapeutic strategies Informed Consent: understands Reason for contiued inpatient stay Substantial Risk for: inability to function and rapid decompensation
[2021-09-01 18:30] VITALS: BP 109/59; PULSE 105; TEMP 36.8
[2021-09-01] MEDS: Mirtazapine 7.5 MG TABLET PO (21:24)
[2021-09-01] MEDS: lamoTRIgine 25 MG TABLET PO (21:24)
[2021-09-02 06:00] VITALS: BP 111/62; PULSE 81; RESP 16; TEMP 36.4; O2SAT 98
[2021-09-02] MEDS: QUEtiapine Fumarate 100 MG TABLET PO (06:35)
[2021-09-02] MEDS: LORazepam 1 MG TABLET PO (06:41)
[2021-09-02] MEDS: busPIRone HCl 10 MG TABLET PO (07:55)
[2021-09-02] MEDS: buPROPion HCL 75 MG TABLET PO (07:55)
[2021-09-02] MEDS: Lithium Carbonate ER 450 MG TABLET.ER 900 MG PO (07:55)
[2021-09-02] MEDS: Nicotine 21 MG PATCH.TD24 TRANSDERMA (07:58)
[2021-09-02] MEDS: QUEtiapine Fumarate 50 MG TABLET 150 MG PO (07:58)
[2021-09-02 08:16] LABS: MANUAL DIFF FLAG NO
[2021-09-02 08:19] LABS: Basophils Absolute Auto 0.1 X10*3/uL (0.0-0.2); Basophils Percent Auto 1.1 % (0-2); Eosinophils Absolute Auto 0.2 X10*3/uL (0.0-0.4); Eosinophils Percent Auto 2.3 % (0-4); Hematocrit 36.1 % (37.0-47.0); Hemoglobin 11.7 g/dl (12.0-16.0); Imm Gran Abs Auto 0.04 X10*3/uL (0.00-0.03); Imm Gran Pct Auto 0.6 % (0.0-0.4); Lymphocytes Absolute Auto 1.5 X10*3/uL (1.2-4.9); Lymphocytes Percent Auto 21.7 % (20-40); Mean Corpuscular HGB Conc 32.4 g/dl (31.0-35.0); Mean Corpuscular Hemoglobin 27.8 pg (27.0-33.0); Mean Corpuscular Volume 85.7 fL (80.0-98.0); Mean Platelet Volume 10.3 fL (9.4-12.3); Monocytes Absolute Auto 0.5 X10*3/uL (0.1-1.2); Monocytes Percent Auto 7.7 % (2-11); Neutrophils Absolute Auto 4.7 x10*3/uL (2.0-8.3); Neutrophils Percent Auto 66.6 % (45-73); Platelet Count 314 X10*3/uL (160-400); Red Blood Count 4.21 X10*6/uL (4.20-5.50); Red Cell Distribution Width 15.9 % (11.0-16.0)
[2021-09-02 08:37] LABS: Alanine Aminotransferase 56 U/L (0-31); Albumin Level 4.3 g/dL (3.5-5.0); Alkaline Phosphatase 65 U/L (39-117); Anion Gap 11 (12-20); Aspartate Amino Transferase 26 U/L (5-31); Bilirubin Total 0.3 mg/dL (0.0-1.0); Blood Urea Nitrogen 11 mg/dL (9-16); Calcium 9.1 mg/dL (8.4-10.2); Carbon Dioxide 25 mmol/L (22-29); Chloride 106 mmol/L (96-108); Creatinine Clr Calc Pharmacy 115.5; Estimated Glomerular Filt Rate > 60; Glucose Random 91 mg/dL (60-115); Potassium 4.4 mmol/L (3.3-5.1); Sodium 138 mmol/L (135-145); Total Protein 6.8 g/dL (6.5-8.0)
[2021-09-02 08:40] LABS: Lithium 0.64 mmol/L (0.60-1.20)
--- NOTE | 2021-09-02 13:50 | P.DS_ITS ---
DS: Providers Provider Date of Service: 09/02/21 Date of admission: 08/25/21 20:03 Date of discharge: 09/02/21 Primary care physician: Unknown Physician Admitting clinician: Hiwot Tracey Attending physician on admission: Joe Corral Consults: 08/25/21 20:17 Consult to Hospitalist Routine Consulting Provider: Hospitalist Reason For Exam: new admit from [facility] [place], no medical concerns Attending physician on discharge: Joe Corral Discharging clinician: Loretta Fowler DS: Diagnosis Discharge Diagnosis (1) Bipolar disorder: Status: Acute (2) THANG (generalized anxiety disorder): Status: Acute (3) Post traumatic stress disorder (PTSD): Status: Acute DS: Medications Discharge Medications Home Medications: Previous Rx's Medication Instructions Recorded bupropion HCl 75 mg tablet 75 mg PO DAILY #30 tabs 09/01/21 buspirone 10 mg tablet 10 mg PO TID #90 tabs 09/01/21 haloperidol 5 mg tablet 5 mg PO TID PRN agitation, 09/01/21 aggression #90 tabs hydroxyzine HCl 50 mg tablet 50 mg PO Q6H PRN Anxiety #60 tabs 09/01/21 lamotrigine 25 mg tablet 25 mg PO BEDTIME #30 tabs 09/01/21 lithium carbonate 450 mg 900 mg PO DAILY #60 tabs 09/01/21 tablet,extended release mirtazapine 7.5 mg tablet 7.5 mg PO BEDTIME MRX1 #60 tabs 09/01/21 nicotine 21 mg/24 hr daily 21 mg transdermal DAILY #30 ea 09/01/21 transdermal patch quetiapine 100 mg tablet (Seroquel) 100 mg PO TID #90 tabs 09/01/21 quetiapine 50 mg tablet (Seroquel) 50 mg PO TID #90 tabs 09/01/21 Mental Status Exam Mental Status Exam Patient Appearance: Appropriate Patient Orientation: Person, Place, Time and Situation Level of Consciousness: Alert Patient Behavior: Appropriate, Talkative, Cooperative and Good Eye Contact Mood Description: Labile Affect Description: Labile Patient Cognition Impaired: No Ability to Follow Directions: Good Speech Pattern: Spontaneous Speech Memory Description: Intact Hallucinations: None Delusions: Not Present Thought Process: Goal Oriented Thought Content: positive for Goal Oriented Depressive Symptoms: Increased Anxiety and Thoughts of /Suicide (denies) Judgement: Good Data Data Completed and Pending Completed studies during hospitalization [Text1]: 08/26/21 08/27/21 08/27/21 21:40 08:40 08:40 WBC RBC Hgb Hct MCV MCH MCHC RDW Plt Count MPV Immature Gran % (Auto) Neut % (Auto) Lymph % (Auto) Coleman % (Auto) Eos % (Auto) Baso % (Auto) Lymph # (Auto) Coleman # (Auto) Eos # (Auto) Baso # (Auto) Abs Immat Gran (auto) Absolute Neuts (auto) Absolute Nucleated RBC Nucleated RBC % (auto) Sodium Potassium Chloride Carbon Dioxide Anion Gap BUN Creatinine Estim Creat Clear Calc Estimated GFR Random Glucose Calcium Total Bilirubin AST ALT Alkaline Phosphatase Total Protein Albumin Urine Test NEGATIVE Oxford T.pallidum Ab (EIA) Nonreactive Chlam trachomat DNA PCR COVID-19 (RAFY) COVID-19 Clin Com HIV 1&2 Ab/P24 Ag 4thGn Nonreactive N.gonorrhoeae DNA (PCR) 08/27/21 08/30/21 09/02/21 21:14 09:57 07:54 WBC 7.0 RBC 4.21 Hgb 11.7 L Hct 36.1 L MCV 85.7 MCH 27.8 MCHC 32.4 RDW 15.9 Plt Count 314 MPV 10.3 Immature Gran % (Auto) 0.6 H Neut % (Auto) 66.6 Lymph % (Auto) 21.7 Coleman % (Auto) 7.7 Eos % (Auto) 2.3 Baso % (Auto) 1.1 Lymph # (Auto) 1.5 Coleman # (Auto) 0.5 Eos # (Auto) 0.2 Baso # (Auto) 0.1 Abs Immat Gran (auto) 0.04 H Absolute Neuts (auto) 4.7 Absolute Nucleated RBC 0.000 Nucleated RBC % (auto) 0.0 Sodium Potassium Chloride Carbon Dioxide Anion Gap BUN Creatinine Estim Creat Clear Calc Estimated GFR Random Glucose Calcium Total Bilirubin AST ALT Alkaline Phosphatase Total Protein Albumin Urine Test Oxford T.pallidum Ab (EIA) Chlam trachomat DNA PCR NOT DETECTED COVID-19 (RAFY) Negative COVID-19 Clin Com See Note HIV 1&2 Ab/P24 Ag 4thGn N.gonorrhoeae DNA (PCR) NOT DETECTED 09/02/21 09/02/21 07:54 07:54 WBC RBC Hgb Hct MCV MCH MCHC RDW Plt Count MPV Immature Gran % (Auto) Neut % (Auto) Lymph % (Auto) Coleman % (Auto) Eos % (Auto) Baso % (Auto) Lymph # (Auto) Coleman # (Auto) Eos # (Auto) Baso # (Auto) Abs Immat Gran (auto) Absolute Neuts (auto) Absolute Nucleated RBC Nucleated RBC % (auto) Sodium 138 Potassium 4.4 Chloride 106 Carbon Dioxide 25 Anion Gap 11 L BUN 11 Creatinine 0.73 Estim Creat Clear Calc 115.5 Estimated GFR > 60 Random Glucose 91 Calcium 9.1 Total Bilirubin 0.3 AST 26 ALT 56 H Alkaline Phosphatase 65 Total Protein 6.8 Albumin 4.3 Urine Test Oxford 0.64 T.pallidum Ab (EIA) Chlam trachomat DNA PCR COVID-19 (RAFY) COVID-19 Clin Com HIV 1&2 Ab/P24 Ag 4thGn N.gonorrhoeae DNA (PCR) 08/27/21 08:43 Urine clean catch - Clean Catch Midstream Urine Culture - Final DS: Summary Hospital Course Hospital Course: Admission to adult psychiatry for exacerbation of symptoms of bipolar disorder, PTSD, THANG. Karyna responded to a regime of Oxford, Lamictal, Seroquel, Wellbutrin, Buspirone, Remeron and prn Haldol, along with prn hydroxyzine. She was accepted to [facility] in [place] and was agreeable to this, participating in the process of interview and assessment. Time spent discussing smoking cessation with patient: 3 to 10 minutes Status at Discharge Functional status at discharge: independent ambulation Overall status at discharge: patient is progressing back to baseline Time Spent with Patient Time attestation: Total time spent providing and/or coordinating discharge services: Time spent: Greater than 30 minutes Discharge Plan Discharge Patient Disposition: Xfer Other Discharge Diagnosis: Bipolar Disorder PTSD THANG Referrals: [facility] [Other] - 09/02/21 12:00 pm (Substance Use Treatment Program Patient will be set up with therapy and psychiatry services through program.) Discharge Medications: New haloperidol 5 mg Tablet 5 mg PO TID PRN (Reason: agitation, aggression) Qty: 90 0RF hydroxyzine HCl 50 mg Tablet 50 mg PO Q6H PRN (Reason: Anxiety) Qty: 60 1RF lithium carbonate 450 mg Tablet Extended Release 900 mg PO DAILY Qty: 60 1RF lamotrigine 25 mg Tablet 25 mg PO BEDTIME Qty: 30 1RF buspirone 10 mg Tablet 10 mg PO TID Qty: 90 1RF bupropion HCl 75 mg Tablet 75 mg PO DAILY Qty: 30 1RF nicotine 21 mg/24 hr Patch 24 Hour 21 mg transdermal DAILY Qty: 30 1RF mirtazapine 7.5 mg Tablet 7.5 mg PO BEDTIME MRX1 Qty: 60 1RF quetiapine [Seroquel] 100 mg tablet 100 mg PO TID Qty: 90 1RF quetiapine [Seroquel] 50 mg tablet 50 mg PO TID Qty: 90 1RF Discharge Orders: Discharge Order (Routine); Ordered 09/02/21 Ordered By: Loretta Fowler Diet: Advance to usual diet Activity on Discharge: As tolerated Stand Alone Forms: Patient Portal Discharge page, Community Support Care Plan Goals: Mood Stabilization Work on Coping Skills Health Concerns: Bipolar Disorder PTSD THANG Plan of Treatment: Participate in plan of care with Ziggy Salazar Attend scheduled appointments Take medications as directed Assessment: non-suicidal, non-psychotic Discharge Date/Time: 09/02/21 10:00
== END 2021-09-02 10:00 | disposition other institution (70) | DRG 751 ==
PROVIDERS: Psychiatry & Neurology Psychiatry; Registered Nurse; Admitting Provider Psychiatry & Neurology Psychiatry; Visit Provider Clinical Nurse Specialist Psychiatric/Mental Health, Adult
DX: F33.1 Major depressive disorder, recurrent, moderate (principal); R45.851 Suicidal ideations; F17.210 Nicotine dependence, cigarettes, uncomplicated; F41.1 Generalized anxiety disorder; F43.10 Post-traumatic stress disorder, unspecified; Z71.6 Tobacco abuse counseling; Z59.02 Unsheltered homelessness; Z20.822 Contact with and (suspected) exposure to COVID-19; Z79.899 Other long term (current) drug therapy
CPT/HCPCS: 36415; 80053; 80061; 80178; 81025; 82607; 82746; 83036; 83735; 84439; 84443; 85025; 86780; 87086; 87389; 87491; 87591; 87635

== ENCOUNTER 2023-06-23 13:38 | Inpatient (IN) | payer OTHER, SELFPAY ==
[2023-06-23 14:04] VITALS: BP 110/75; PULSE 102; RESP 18; TEMP 37; O2SAT 99
[2023-06-23 15:06] VITALS: BMI 20.1
[2023-06-23] MEDS: LORazepam 1 MG TABLET PO ×2 (16:10→20:25)
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
[2023-06-23 20:00] VITALS: BP 125/60; PULSE 105; RESP 18; TEMP 36.8; O2SAT 99
[2023-06-23] MEDS: QUEtiapine Fumarate 50 MG TABLET PO (20:25)
[2023-06-23] MEDS: traZODone HCL 50 MG TABLET PO ×2 (21:48→22:55)
[2023-06-23] MEDS: hydrOXYzine HCL 50 MG TABLET PO (22:55)
--- NOTE | 2023-06-24 | ECG_ITS ---
Test Reason : Baseline, ?PACs Blood Pressure : / mmHG Vent. Rate : 067 BPM Atrial Rate : 067 BPM P-R Int : 138 ms QRS Dur : 084 ms QT Int : 380 ms P-R-T Axes : 079 070 059 degrees QTc Int : 401 ms Sinus rhythm with marked sinus arrhythmia Otherwise normal ECG No previous ECGs available Referred By: Natan Decker Electronically Signed By:Clint Tomlin
[2023-06-24] MEDS: LORazepam 1 MG TABLET PO ×5 (02:02→20:07)
[2023-06-24 07:12] LABS: Alanine Aminotransferase 27 U/L (0-31); Albumin Level 4.2 g/dL (3.5-5.0); Alkaline Phosphatase 59 U/L (39-117); Anion Gap 15 (12-20); Aspartate Amino Transferase 19 U/L (5-31); Bilirubin Total 0.3 mg/dL (0.0-1.0); Blood Urea Nitrogen 10 mg/dL (9-16); Calcium 9.9 mg/dL (8.4-10.2); Carbon Dioxide 21 mmol/L (22-29); Chloride 107 mmol/L (96-108); Cholesterol 117 mg/dL (<200); Creatinine Clr Calc Pharmacy 121.6; Estimated Glomerular Filt Rate > 60; Glucose Fasting 92 mg/dL (60-99); HDL Cholesterol 33 mg/dL (>40); LDL Cholesterol Calculated 65 mg/dL (<100); Potassium 3.7 mmol/L (3.3-5.1); Sodium 139 mmol/L (135-145); Total Protein 7.1 g/dL (6.5-8.0); Triglycerides 96 mg/dL (<150)
[2023-06-24 08:00] VITALS: BP 117/66; PULSE 101; RESP 18; O2SAT 98
[2023-06-24] MEDS: hydrOXYzine HCL 50 MG TABLET PO ×3 (09:57→23:11)
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
[2023-06-24] MEDS: QUEtiapine Fumarate 50 MG TABLET PO ×2 (14:02→20:07)
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
[2023-06-24 19:48] VITALS: BP 110/68; PULSE 96; RESP 18; TEMP 36.9; O2SAT 98
[2023-06-24] MEDS: traZODone HCL 50 MG TABLET PO ×2 (20:50→23:11)
[2023-06-25] MEDS: LORazepam 1 MG TABLET PO ×2 (03:51→08:32)
[2023-06-25] MEDS: QUEtiapine Fumarate 50 MG TABLET PO (06:43)
[2023-06-25 08:00] VITALS: BP 134/80; PULSE 96; RESP 16; TEMP 36.9; O2SAT 100
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
[2023-06-25] MEDS: Lithium Carbonate 300 MG CAPSULE PO (12:50)
[2023-06-25] MEDS: cloNIDine HCL 0.1 MG TABLET PO ×2 (12:50→19:07)
[2023-06-25 19:07] VITALS: BP 119/60
[2023-06-25 20:00] VITALS: BP 116/58; PULSE 78; RESP 16; TEMP 36.8; O2SAT 100
[2023-06-25] MEDS: QUEtiapine Fumarate 50 MG TABLET 150 MG PO (22:01)
[2023-06-25] MEDS: Lithium Carbonate ER 300 MG TABLET.ER 600 MG PO (22:01)
[2023-06-26] MEDS: cloNIDine HCL 0.1 MG TABLET PO ×5 (07:18→20:33)
[2023-06-26 08:00] VITALS: BP 122/70; PULSE 93; RESP 17; TEMP 37.1; O2SAT 100
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
[2023-06-26 11:57] VITALS: BP 120/81
[2023-06-26 15:24] VITALS: BP 130/77
[2023-06-26 17:01] VITALS: BP 120/67
[2023-06-26 20:00] VITALS: BP 100/62; PULSE 101; RESP 17; TEMP 36.8; O2SAT 100
[2023-06-26] MEDS: QUEtiapine Fumarate 50 MG TABLET 150 MG PO ×2 (20:30→21:58)
[2023-06-26] MEDS: Lithium Carbonate ER 300 MG TABLET.ER 600 MG PO (20:30)
[2023-06-27] MEDS: QUEtiapine Fumarate 50 MG TABLET PO (02:45)
[2023-06-27] MEDS: cloNIDine HCL 0.1 MG TABLET PO ×4 (07:04→16:43)
[2023-06-27 08:00] VITALS: BP 105/59; PULSE 111; RESP 18; TEMP 36.9; O2SAT 100
[2023-06-27] MEDS: hydrOXYzine HCL 50 MG TABLET PO ×3 (09:22→23:01)
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
[2023-06-27 11:11] VITALS: BP 115/79
[2023-06-27] MEDS: risperiDONE 1 MG TABLET PO ×3 (12:35→21:24)
[2023-06-27 13:01] VITALS: BP 108/56
[2023-06-27 16:43] VITALS: BP 104/64
[2023-06-27 19:56] VITALS: BP 134/68; PULSE 96; RESP 18; TEMP 36.4; O2SAT 99
[2023-06-27] MEDS: Lithium Carbonate ER 300 MG TABLET.ER 600 MG PO (21:24)
[2023-06-27] MEDS: QUEtiapine Fumarate 50 MG TABLET 150 MG PO (21:34)
[2023-06-28] MEDS: cloNIDine HCL 0.1 MG TABLET PO ×2 (02:57→08:16)
[2023-06-28 08:00] VITALS: BP 103/60; PULSE 86; RESP 17; TEMP 36.4; O2SAT 100
[2023-06-28 08:16] VITALS: BP 103/60
[2023-06-28] MEDS: risperiDONE 1 MG TABLET PO (08:17)
[2023-06-28] MEDS: hydrOXYzine HCL 50 MG TABLET PO (08:19)
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
== END 2023-06-28 10:30 | disposition home or self-care (01) | DRG 753 ==
PROVIDERS: Psychiatry & Neurology Psychiatry; Admitting Provider Psychiatry & Neurology Psychiatry; Visit Provider Psychiatry & Neurology Psychiatry
DX: F31.2 Bipolar disorder, current episode manic severe with psychotic features (principal); F17.210 Nicotine dependence, cigarettes, uncomplicated; Z71.6 Tobacco abuse counseling; F43.10 Post-traumatic stress disorder, unspecified; Z62.811 Personal history of psychological abuse in childhood; Z79.899 Other long term (current) drug therapy
CPT/HCPCS: 36415; 80053; 80061; 93005

== ENCOUNTER 2023-06-23 13:38 | Outpatient (BNV) | payer OTHER, SELFPAY | END 2023-06-24 17:06 | PROVIDERS: Admitting Provider Psychiatry & Neurology Psychiatry; Visit Provider Internal Medicine Cardiovascular Disease | DX: I49.9 Cardiac arrhythmia, unspecified (principal) | CPT/HCPCS: 93010 ==

== ENCOUNTER → 2023-06-23 13:38 | Outpatient (BNV) | payer OTHER, SELFPAY | PROVIDERS: Admitting Provider Psychiatry & Neurology Psychiatry; Visit Provider Psychiatry & Neurology Psychiatry | DX: F31.63 Bipolar disorder, current episode mixed, severe, without psychotic features (principal); F43.11 Post-traumatic stress disorder, acute | CPT/HCPCS: 99232 ==

== ENCOUNTER → 2023-06-23 13:38 | Outpatient (BNV) | payer OTHER, SELFPAY | PROVIDERS: Admitting Provider Psychiatry & Neurology Psychiatry; Visit Provider Student in an Organized Health Care Education/Training Program | DX: Z02.2 Encounter for examination for admission to residential institution (principal) | CPT/HCPCS: 99429 ==